=== PATIENT | male | born 1990 | race Caucasian/White ===

== ENCOUNTER 2017-01-19 13:37 | Inpatient (IN) | payer OTHER ==
[2017-01-19 14:49] VITALS: BMI 28.6
--- NOTE | 2017-01-19 16:01 | HP ---
COWS - Scale Resting Pulse: 2= [place] 101-120 Sweatin=Flushed/Facial Moisture Restless Observation: 3= Extraneous Movement Pupil Size: 1= Pupils >than Normal Bone or Joint Aches: 2= Severe Diffuse Aches Runny Nose/ Eye Tearin= Runny Nose/Eyes GI Upset > 30mins: 2= Nausea/Diarrhea Tremor Observation: 1= Tremor [place], Not Seen Yawning Observation: 1= 1-2x During Session Anxiety or Irritability: 2=Irritable/Anxious Goose Flesh Skin: 3=Piloerection COWS Score: 21 Admission ROS BHS - HPI Chief Complaint: I need help to stop using heroin . Allergies/Adverse Reactions: Allergies Allergy/AdvReac Type Severity Reaction Status Date / Time No Known Allergies Allergy Verified 01/19/17 15:17 History of Present Illness: 26 y/o m pt with a h/o heroin dep. seeking detox. Exam Limitations: No Limitations - Ebola screening Have you traveled outside of the country in the last 21 days: No Have you been sick,other than usual withdrawal symptoms: No Do you have a fever: No - Review of Systems Constitutional: Malaise, Night Sweats, Changes in sleep EENT: reports: Tearing, Nose Congestion Respiratory: reports: No Symptoms reported Cardiac: reports: No Symptoms Reported GI: reports: Diarrhea, Poor Appetite, Indigestion, Abdominal cramping : reports: No Symptoms Reported Musculoskeletal: reports: Back Pain, Joint Pain, Muscle Pain, Neck Pain, Other ( restless legs) Integumentary: reports: No Symptoms Reported Neuro: reports: No Symptoms reported Endocrine: reports: No Symptoms Reported Hematology: reports: No Symptoms Reported Psychiatric: reports: Anxious, Depressed Other Systems: Reviewed and Negative Patient History - Patient Medical History Hx Anemia: No Hx Asthma: Yes Hx Chronic Obstructive Pulmonary Disease (COPD): No Hx Cardiac Disorders: No Hx Hypertension: No Hx Pacemaker: No HX Cerebrovascular Accident: No Hx Seizures: No Hx Diabetes: No Hx Gastrointestinal Disorders: No Hx Liver Disease: No Hx Genitourinary Disorders: No Hx Sexually Transmitted Disorders: No Hx Renal Disease (ESRD): No Hx Hepatitis C: No Hx Depression: Yes Hx Suicide Attempt: No Hx Bipolar Disorder: No Hx Schizophrenia: No - Patient Surgical History Past Surgical History: No - PPD History Previous Implant?: Yes Documented Results: Negative w/o proof Implanted On Prior [facility] Admission?: No PPD to be Administered?: Yes - Reproductive History Patient is a Female of Child Bearing Age (11 -55 yrs old): No - Smoking Cessation Smoking history: Current every day smoker Have you smoked in the past 12 months: Yes Aproximately how many cigarettes per day: 10 Cigars Per Day: 0 Hx Chewing Tobacco Use: No Initiated information on smoking cessation: Yes 'Breaking Loose' booklet given: 01/19/17 - Substance & Tx. History Hx Alcohol Use: No Hx Substance Use: Yes Substance Use Type: Heroin Hx Substance Use Treatment: No - Substances Abused Heroin Route: Inhalation Frequency: Daily Amount used: 1 GRAM AND UP Age of first use: 25 Date of Last Use: 01/18/17 Family Disease History - Family Disease History Family History: Denies Admission Physical Exam S - Vital Signs Vital Signs: Vital Signs - 24 hr 01/19/17 14:47 Temperature 97.1 F L Pulse Rate 102 H Respiratory 18 Rate Blood Pressure 128/77 26 y/o m pt aox3 , restless, rhinnorrea, tearing , cooperative with exam. - Physical General Appearance: Yes: Appropriately Dressed, Tremorous, Irritable, Sweating, Anxious HEENTM: Yes: EOMI, Hearing grossly Normal, Normocephalic, Muffled/Hoarse Voice Respiratory: Yes: Chest Non-Tender, Lungs Clear, Normal Breath Sounds, No Respiratory Distress Neck: Yes: Within Normal Limits, Supple, Trachea in good position Breast: Yes: Within Normal Limits Cardiology: Yes: Regular Rhythm, S1, S2, Tachycardia Abdominal: Yes: Non Tender, Flat, Soft, Increased Bowel Sounds Genitourinary: Yes: Within Normal Limits Back: Yes: Decreased Range of Motion, Muscle Spasm Musculoskeletal: Yes: Back pain, Joint Stiffness, Muscle Pain Extremities: Yes: Tremors Neurological: Yes: translator and interpreter II-XII NML intact, Fully Oriented, Alert, Motor Strength 5/5, Normal Response Integumentary: Yes: Diaphoresis, Other (multiple tattos) Lymphatic: Yes: Within Normal Limits - Diagnostic (1) Opioid dependence with withdrawal Current Visit: Yes Status: Acute (2) Nicotine dependence Current Visit: Yes Status: Chronic Qualifiers: Nicotine product type: cigarettes Substance use status: uncomplicated Qualified Code(s): F17.210 - Nicotine dependence, cigarettes, uncomplicated (3) Depression Current Visit: Yes Status: Chronic Qualifiers: Depression Type: unspecified Qualified Code(s): F32.9 - Major depressive disorder, single episode, unspecified Cleared for Admission [facility] - Detox or Rehab [facility] Level of Care: Medically Managed Detox Regimen/Protocol: Methadone [facility] Breath Alcohol Content Breath Alcohol Content: 0 Urine Drug Screen - Results Drug Screen Negative: No Urine Drug Screen Results: OPI-Opiates, BZO-Benzodiazepines
[2017-01-19] MEDS ORDERED: MAG HYDROX/AL HYDROX/SIMETH 30 ML UNIT-DOSE CUP PO PRN (16:13)
[2017-01-19] MEDS ORDERED: guaiFENesin/D-METHORPHAN HB 10 ML UNIT-DOSE CUPS PO PRN (16:13)
[2017-01-19] MEDS ORDERED: IBUPROFEN 400 MG TABLET (FP) PO PRN (16:13)
[2017-01-19] MEDS ORDERED: MENTHOL/PHENOL 1 EACH UD MM PRN (16:13)
[2017-01-19] MEDS ORDERED: P-EPHED 60MG/TRIPROLIDI 2.5MG TABLET PO PRN (16:13)
[2017-01-19] MEDS ORDERED: LOPERAMIDE HCL 2 MG CAPSULE PO PRN (16:13)
[2017-01-19] MEDS ORDERED: MAGNESIUM HYDROX 2400MG/30ML ORAL SUSPENSION 30 ML CUP PO PRN (16:13)
[2017-01-19] MEDS ORDERED: hydrOXYzine PAMOATE 25 MG CAPSULE (FP) PO PRN (16:13)
[2017-01-19] MEDS ORDERED: MAGNESIUM CITRATE 300 ML BOTTLE PO PRN (16:13)
[2017-01-19] MEDS ORDERED: ACETAMINOPHEN 325 MG TABLET (FP) PO PRN (16:13)
[2017-01-19] MEDS ORDERED: METHADONE HCL 10 MG TABLET (FOR DETOX USE ONLY) PO ONE ×2 (16:45→23:00)
[2017-01-19] MEDS: diazePAM 5 MG TABLET PO PRN ×2 (16:52→22:20)
[2017-01-19] MEDS: NICOTINE POLACRILEX 4 MG GUM BC PRN (17:30)
[2017-01-19] MEDS: THIAMINE HCL 100 MG TABLET (FP) PO SCH (22:20)
[2017-01-19] MEDS ORDERED: ALBUTEROL SO4 6.7 GM HFA INHALER IH PRN (22:20)
[2017-01-19] MEDS: CYCLOBENZAPRINE HCL 10 MG TABLET (FP) PO PRN (22:20)
[2017-01-19] MEDS: diphenhydrAMINE HCL 50 MG CAPSULE PO PRN (22:20)
[2017-01-19 22:39] LABS: URINE APPEARANCE CLEAR; URINE BILIRUBIN NEGATIVE (NEGATIVE); URINE BLOOD NEGATIVE (NEGATIVE); URINE COLOR YELLOW; URINE GLUCOSE (UA) NEGATIVE (NEGATIVE); URINE KETONE NEGATIVE (NEGATIVE); URINE LEUK ESTERASE NEGATIVE (NEGATIVE); URINE NITRITE NEGATIVE (NEGATIVE); URINE PROTEIN NEGATIVE (NEGATIVE); URINE UROBILINOGEN NEGATIVE E.U./dl (0.2-1.0)
[2017-01-20] MEDS: diazePAM 5 MG TABLET PO PRN ×5 (02:41→22:16)
[2017-01-20] MEDS: diphenhydrAMINE HCL 50 MG CAPSULE PO PRN (02:42)
[2017-01-20] MEDS: CYCLOBENZAPRINE HCL 10 MG TABLET (FP) PO PRN ×2 (06:41→22:16)
[2017-01-20 09:35] LABS: MCH 26.2 pg (25.7-33.7); MCHC 32.8 g/dl (32.0-35.9); MEAN PLT VOLUME 7.8 fl (7.5-11.1); PLATELET COUNT 342 K/MM3 (134-434); RDW 13.9 % (11.9-15.9); WHITE BLOOD COUNT 8.3 K/mm3 (4.0-10.0)
[2017-01-20] MEDS ORDERED: METHADONE HCL 10 MG TABLET (FOR DETOX USE ONLY) PO ONE (10:00)
--- NOTE | 2017-01-20 10:30 | PN ---
BHS COWS - Scale Resting Pulse: 0= [place] 80 or Below Sweatin=Flushed/Facial Moisture Restless Observation: 3= Extraneous Movement Pupil Size: 2= Moderately Dilated Bone or Joint Aches: 2= Severe Diffuse Aches Runny Nose/ Eye Tearin= Runny Nose/Eyes GI Upset > 30mins: 2= Nausea/Diarrhea Tremor Observation of Outstretched Hands: 2= Slight Tremor Visible Yawning Observation: 1= 1-2x During Session Anxiety or Irritability: 2=Irritable/Anxious Goose Flesh Skin: 0=Smooth Skin COWS Score: 18 BHS Progress Note (SOAP) Subjective: ALERT,IRRITABLE,ANXIOUS,INTERRUPTED SLEEP,PAIN IN THE BODY AND BACK Objective: 01/20/17 10:29 Vital Signs Temperature 98.2 F 01/20/17 09:55 Pulse Rate 87 01/20/17 09:55 Respiratory Rate 18 01/20/17 09:55 Blood Pressure 133/81 01/20/17 09:55 O2 Sat by Pulse Oximetry (%) EKG NSR NO CHEST PAIN,NO SOB,NO DIZZINESS Laboratory Last Values WBC 8.3 K/mm3 (4.0-10.0) 01/20/17 07:47 RBC 6.05 M/mm3 (4.00-5.60) H 01/20/17 07:47 Hgb 15.9 GM/dL (11.7-16.9) 01/20/17 07:47 Hct 48.4 % (35.4-49) 01/20/17 07:47 MCV 80.0 fl (80-96) 01/20/17 07:47 MCHC 32.8 g/dl (32.0-35.9) 01/20/17 07:47 RDW 13.9 % (11.9-15.9) 01/20/17 07:47 Plt Count 342 K/MM3 (134-434) 01/20/17 07:47 MPV 7.8 fl (7.5-11.1) 01/20/17 07:47 Urine Color Yellow 01/19/17 19:35 Urine Appearance Clear 01/19/17 19:35 Urine pH 5.0 (5.0-8.0) 01/19/17 19:35 Ur Specific [place] 1.017 (1.001-1.035) 01/19/17 19:35 Urine Protein Negative (NEGATIVE) 01/19/17 19:35 Urine Glucose (UA) Negative (NEGATIVE) 01/19/17 19:35 Urine Ketones Negative (NEGATIVE) 01/19/17 19:35 Urine Blood Negative (NEGATIVE) 01/19/17 19:35 Urine Nitrite Negative (NEGATIVE) 01/19/17 19:35 Urine Bilirubin Negative (NEGATIVE) 01/19/17 19:35 Urine Urobilinogen Negative E.U./dl (0.2-1.0) 01/19/17 19:35 Ur Leukocyte Esterase Negative (NEGATIVE) 01/19/17 19:35 RPR Titer Nonreactive (NONREACTIVE) 01/20/17 07:47 OTHER LABS PENDING Assessment: 01/20/17 10:30 WITHDRAWAL SYMPTOM Plan: CONTINUE DETOX
[2017-01-20 10:38] LABS: ALBUMIN 4.6 g/dl (3.4-5.0); ANION GAP 13 (8-16); CALCIUM 9.9 mg/dL (8.5-10.1); CO2 23 mmol/L (21-32); GLUCOSE,RANDOM 110 mg/dL (74-106)
[2017-01-20 10:42] LABS: ALK PHOS 85 U/L (45-117); BILIRUBIN,TOTAL 0.7 mg/dL (0.2-1.0); CREATININE 1.2 mg/dL (0.7-1.3); SGOT/AST 13 U/L (15-37); SGPT/ALT 27 U/L (12-78); TOT PROT 8.1 g/dl (6.4-8.2)
--- NOTE | 2017-01-20 10:51 | CONSULT ---
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 Substance Abuse History: - Smoking Cessation. Smoking history: Current every day smoker. Have you smoked in the past 12 months: Yes. Aproximately how many cigarettes per day: 10. Cigars Per Day: 0. Hx Chewing Tobacco Use: No. Initiated information on smoking cessation: Yes. 'Breaking Loose' booklet given : 01/19/17. - Substance & Tx. History. Hx Alcohol Use: No. Hx Substance Use: Yes. Substance Use Type: Heroin. Hx Substance Use Treatment: No. - Substances Abused. Heroin. Route: Inhalation. Frequency: Daily. Amount used: 1 GRAM AND UP. Age of first use: 25. Date of Last Use: 01/18/17. Confirmed by the atient in this interview. Medical History: Bronchial asthma. Psychiatric History: No history of psychiatric hospitalizations.Patient reports that,two years ago,he sought the services of a private psychiatrist to address issues of depression and anxiety.Was prescribed bupropion,lyrica and xanax.Mr Master indicates that his addiction (heroin) escalated overtime.He dropped out of outpatient follow up.Has not seen his psychiatrist for at least one year.No history of suicide attempts. Physical/Sexual Abuse/Trauma History: Patient denies. Additional Comment: Urine Drug Screen Results: OPI-Opiates, BZO- Benzodiazepines.Noted. Mental Status Exam - Mental Status Exam Alert and Oriented to: Time, Place, Person Cognitive Function: Good Patient Appearance: Well Groomed Mood: Nervous, Anxious Affect: Normal Range Patient Behavior: Fatigued, Cooperative Speech Pattern: Clear, Appropriate Voice Loudness: Normal Thought Process: Intact, Goal Oriented Thought Disorder: Not Present Hallucinations: Denies Suicidal Ideation: Denies Homicidal Ideation: Denies Insight/Judgement: Fair Sleep: Poorly, Difficulty falling asleep Appetite: Good Muscle strength/Tone: Normal Gait/Station: Normal Psychiatric Findings - Problem List ([place] 1, 2,3) (1) Opioid dependence with withdrawal Current Visit: Yes Status: Acute (2) Nicotine dependence Current Visit: Yes Status: Acute Qualifiers: Nicotine product type: cigarettes Substance use status: uncomplicated Qualified Code(s): F17.210 - Nicotine dependence, cigarettes, uncomplicated (3) Insomnia Current Visit: Yes Status: Acute (4) Substance induced mood disorder Current Visit: Yes Status: Acute - Initial Treatment Plan Initial Treatment Plan: Psychoeducation.Detoxification.Ambien 10 mg po hs prn.Patient is made aware of the risk of parasomnias.He agrees with this plan of care.Observation.
[2017-01-20] MEDS: NICOTINE 21 MG/24 HOURS TOPICAL PATCH TD SCH (10:53)
[2017-01-20] MEDS: PRENATAL VITAMINS W/ FOLIC ACID TABLET (FP) PO SCH (10:54)
[2017-01-20] MEDS: NICOTINE POLACRILEX 4 MG GUM BC PRN (14:16)
--- NOTE | 2017-01-20 16:44 | EKG ---
Test Reason : Blood Pressure : / mmHG Vent. Rate : 081 BPM Atrial Rate : 081 BPM P-R Int : 148 ms QRS Dur : 104 ms QT Int : 374 ms P-R-T Axes : 050 051 036 degrees QTc Int : 434 ms NORMAL SINUS RHYTHM RSR' OR QR PATTERN IN V1 SUGGESTS RIGHT VENTRICULAR CONDUCTION DELAY BORDERLINE ECG NO PREVIOUS ECGS AVAILABLE Confirmed by MD ALEJANDRA, ROSEY ([id number]) on 01/20/2017 4:43:33 PM Referred By: Gee Santana Confirmed By:ROSEY ROBERTS MD
[2017-01-20] MEDS: THIAMINE HCL 100 MG TABLET (FP) PO SCH (22:16)
[2017-01-20] MEDS: cloNIDine HCL 0.1 MG TABLET PO SCH (22:16)
[2017-01-20] MEDS: ZOLPIDEM TARTRATE 10 MG TABLET (PARK CARE ONLY) PO PRN (22:16)
[2017-01-21] MEDS: diazePAM 5 MG TABLET PO PRN ×5 (02:48→22:57)
[2017-01-21] MEDS ORDERED: METHADONE HCL 5 MG TABLET (FOR DETOX USE ONLY) PO ONE (10:00)
[2017-01-21] MEDS: cloNIDine HCL 0.1 MG TABLET PO SCH ×2 (11:15→22:55)
[2017-01-21] MEDS: PRENATAL VITAMINS W/ FOLIC ACID TABLET (FP) PO SCH (11:15)
[2017-01-21] MEDS: NICOTINE 21 MG/24 HOURS TOPICAL PATCH TD SCH (11:16)
--- NOTE | 2017-01-21 12:19 | PN ---
S COWS - Scale Resting Pulse: 0= [place] 80 or Below Sweatin=Flushed/Facial Moisture Restless Observation: 3= Extraneous Movement Pupil Size: 1= Pupils >than Normal Bone or Joint Aches: 2= Severe Diffuse Aches Runny Nose/ Eye Tearin= Runny Nose/Eyes GI Upset > 30mins: 2= Nausea/Diarrhea Tremor Observation of Outstretched Hands: 2= Slight Tremor Visible Yawning Observation: 0= None Anxiety or Irritability: 2=Irritable/Anxious Goose Flesh Skin: 3=Piloerection COWS Score: 19 BHS Progress Note (SOAP) Subjective: sleeplessness, restlessness,sweats, irritability and generalized muscle aches Objective: 01/21/17 12:18 Vital Signs - 8 hr 01/21/17 01/21/17 06:00 10:00 Temperature 97.7 F 98.1 F Pulse Rate 68 92 H Respiratory 16 18 Rate Blood Pressure 140/90 121/75 Laboratory Last Values WBC 8.3 K/mm3 (4.0-10.0) 01/20/17 07:47 RBC 6.05 M/mm3 (4.00-5.60) H 01/20/17 07:47 Hgb 15.9 GM/dL (11.7-16.9) 01/20/17 07:47 Hct 48.4 % (35.4-49) 01/20/17 07:47 MCV 80.0 fl (80-96) 01/20/17 07:47 MCHC 32.8 g/dl (32.0-35.9) 01/20/17 07:47 RDW 13.9 % (11.9-15.9) 01/20/17 07:47 Plt Count 342 K/MM3 (134-434) 01/20/17 07:47 MPV 7.8 fl (7.5-11.1) 01/20/17 07:47 Sodium 143 mmol/L (136-145) 01/20/17 07:47 Potassium 4.0 mmol/L (3.5-5.1) 01/20/17 07:47 Chloride 107 mmol/L (98-107) 01/20/17 07:47 Carbon Dioxide 23 mmol/L (21-32) 01/20/17 07:47 Anion Gap 13 (8-16) 01/20/17 07:47 BUN 14 mg/dL (7-18) 01/20/17 07:47 Creatinine 1.2 mg/dL (0.7-1.3) 01/20/17 07:47 Creat Clearance w eGFR > 60 (>60) 01/20/17 07:47 Random Glucose 110 mg/dL (74-106) H 01/20/17 07:47 Calcium 9.9 mg/dL (8.5-10.1) 01/20/17 07:47 Total Bilirubin 0.7 mg/dL (0.2-1.0) 01/20/17 07:47 AST 13 U/L (15-37) L 01/20/17 07:47 ALT 27 U/L (12-78) 01/20/17 07:47 Alkaline Phosphatase 85 U/L (45-117) 01/20/17 07:47 Total Protein 8.1 g/dl (6.4-8.2) 01/20/17 07:47 Albumin 4.6 g/dl (3.4-5.0) 01/20/17 07:47 Urine Color Yellow 01/19/17 19:35 Urine Appearance Clear 01/19/17 19:35 Urine pH 5.0 (5.0-8.0) 01/19/17 19:35 Ur Specific [place] 1.017 (1.001-1.035) 01/19/17 19:35 Urine Protein Negative (NEGATIVE) 01/19/17 19:35 Urine Glucose (UA) Negative (NEGATIVE) 01/19/17 19:35 Urine Ketones Negative (NEGATIVE) 01/19/17 19:35 Urine Blood Negative (NEGATIVE) 01/19/17 19:35 Urine Nitrite Negative (NEGATIVE) 01/19/17 19:35 Urine Bilirubin Negative (NEGATIVE) 01/19/17 19:35 Urine Urobilinogen Negative E.U./dl (0.2-1.0) 01/19/17 19:35 Ur Leukocyte Esterase Negative (NEGATIVE) 01/19/17 19:35 RPR Titer Nonreactive (NONREACTIVE) 01/20/17 07:47 Hepatitis C Antibody 0.1 s/co ratio (0.0-0.9) 01/20/17 07:47 Labs noted Assessment: 02/25/17 12:18 withdrawal sx Plan: continue detox
[2017-01-21] MEDS: THIAMINE HCL 100 MG TABLET (FP) PO SCH (22:53)
[2017-01-21] MEDS: diphenhydrAMINE HCL 50 MG CAPSULE PO PRN (22:53)
[2017-01-21] MEDS: ZOLPIDEM TARTRATE 10 MG TABLET (PARK CARE ONLY) PO PRN (22:55)
[2017-01-21] MEDS: QUEtiapine FUMARATE 50 MG TABLET PO SCH (22:55)
[2017-01-22] MEDS: diazePAM 5 MG TABLET PO PRN ×3 (06:04→15:12)
[2017-01-22] MEDS ORDERED: METHADONE HCL 5 MG TABLET (FOR DETOX USE ONLY) PO ONE (10:00)
[2017-01-22] MEDS: cloNIDine HCL 0.1 MG TABLET PO SCH ×2 (10:50→22:47)
[2017-01-22] MEDS: PRENATAL VITAMINS W/ FOLIC ACID TABLET (FP) PO SCH (10:50)
[2017-01-22] MEDS: NICOTINE 21 MG/24 HOURS TOPICAL PATCH TD SCH (10:51)
[2017-01-22] MEDS: NICOTINE POLACRILEX 4 MG GUM BC PRN ×2 (10:55→15:14)
--- NOTE | 2017-01-22 11:43 | PN ---
S Progress Note (SOAP) Subjective: Restlessness, Interrupted Sleep, Tremors, Mild Headache, Objective: 01/22/17 11:42 Vital Signs Temperature 95.9 F L 01/22/17 10:00 Pulse Rate 91 H 01/22/17 10:00 Respiratory Rate 20 01/22/17 10:00 Blood Pressure 133/77 01/22/17 10:00 O2 Sat by Pulse Oximetry (%) Laboratory Last Values WBC 8.3 K/mm3 (4.0-10.0) 01/20/17 07:47 RBC 6.05 M/mm3 (4.00-5.60) H 01/20/17 07:47 Hgb 15.9 GM/dL (11.7-16.9) 01/20/17 07:47 Hct 48.4 % (35.4-49) 01/20/17 07:47 MCV 80.0 fl (80-96) 01/20/17 07:47 MCHC 32.8 g/dl (32.0-35.9) 01/20/17 07:47 RDW 13.9 % (11.9-15.9) 01/20/17 07:47 Plt Count 342 K/MM3 (134-434) 01/20/17 07:47 MPV 7.8 fl (7.5-11.1) 01/20/17 07:47 Sodium 143 mmol/L (136-145) 01/20/17 07:47 Potassium 4.0 mmol/L (3.5-5.1) 01/20/17 07:47 Chloride 107 mmol/L (98-107) 01/20/17 07:47 Carbon Dioxide 23 mmol/L (21-32) 01/20/17 07:47 Anion Gap 13 (8-16) 01/20/17 07:47 BUN 14 mg/dL (7-18) 01/20/17 07:47 Creatinine 1.2 mg/dL (0.7-1.3) 01/20/17 07:47 Creat Clearance w eGFR > 60 (>60) 01/20/17 07:47 Random Glucose 110 mg/dL (74-106) H 01/20/17 07:47 Calcium 9.9 mg/dL (8.5-10.1) 01/20/17 07:47 Total Bilirubin 0.7 mg/dL (0.2-1.0) 01/20/17 07:47 AST 13 U/L (15-37) L 01/20/17 07:47 ALT 27 U/L (12-78) 01/20/17 07:47 Alkaline Phosphatase 85 U/L (45-117) 01/20/17 07:47 Total Protein 8.1 g/dl (6.4-8.2) 01/20/17 07:47 Albumin 4.6 g/dl (3.4-5.0) 01/20/17 07:47 Urine Color Yellow 01/19/17 19:35 Urine Appearance Clear 01/19/17 19:35 Urine pH 5.0 (5.0-8.0) 01/19/17 19:35 Ur Specific [place] 1.017 (1.001-1.035) 01/19/17 19:35 Urine Protein Negative (NEGATIVE) 01/19/17 19:35 Urine Glucose (UA) Negative (NEGATIVE) 01/19/17 19:35 Urine Ketones Negative (NEGATIVE) 01/19/17 19:35 Urine Blood Negative (NEGATIVE) 01/19/17 19:35 Urine Nitrite Negative (NEGATIVE) 01/19/17 19:35 Urine Bilirubin Negative (NEGATIVE) 01/19/17 19:35 Urine Urobilinogen Negative E.U./dl (0.2-1.0) 01/19/17 19:35 Ur Leukocyte Esterase Negative (NEGATIVE) 01/19/17 19:35 RPR Titer Nonreactive (NONREACTIVE) 01/20/17 07:47 Hepatitis C Antibody 0.1 s/co ratio (0.0-0.9) 01/20/17 07:47 Labs Noted Assessment: Withdrawal Symptoms Plan: Continue Detox
[2017-01-22] MEDS: THIAMINE HCL 100 MG TABLET (FP) PO SCH (22:46)
[2017-01-22] MEDS: ZOLPIDEM TARTRATE 10 MG TABLET (PARK CARE ONLY) PO PRN (22:47)
[2017-01-22] MEDS: QUEtiapine FUMARATE 50 MG TABLET PO SCH (22:49)
[2017-01-23] MEDS ORDERED: METHADONE HCL 10 MG TABLET (FOR DETOX USE ONLY) PO ONE (10:00)
[2017-01-23 10:19] VITALS: BP 119/60; PULSE 93; TEMP 97.7
[2017-01-23] MEDS: NICOTINE 21 MG/24 HOURS TOPICAL PATCH TD SCH (10:30)
[2017-01-23] MEDS: PRENATAL VITAMINS W/ FOLIC ACID TABLET (FP) PO SCH (10:30)
[2017-01-23] MEDS: CYCLOBENZAPRINE HCL 10 MG TABLET (FP) PO PRN (10:32)
[2017-01-23] MEDS: cloNIDine HCL 0.1 MG TABLET PO SCH (10:32)
[2017-01-23] MEDS: NICOTINE POLACRILEX 4 MG GUM BC PRN (10:33)
--- NOTE | 2017-01-23 10:58 | DS ---
[facility] Detox Discharge Summary Admission Date: 01/19/17 Discharge Date: 01/23/17 - History Present History: Opioid Dependence - Physical Exam Results Vital Signs: Vital Signs Temperature 97.7 F 01/23/17 10:18 Pulse Rate 93 H 01/23/17 10:18 Respiratory Rate 18 01/23/17 10:18 Blood Pressure 119/60 01/23/17 10:18 O2 Sat by Pulse Oximetry (%) - Treatment Hospital Course: Detox Protocol Followed, Detoxed Safely, Responded well, Discharged Condition Good - Medication Discharge Medications: Ambulatory Orders Albuterol Sulfate Inhaler - [Ventolin Hfa Inhaler -] 2 inh PO Q4H PRN 01/19/17 - Diagnosis (1) Opioid dependence with withdrawal Current Visit: Yes Status: Chronic (2) Nicotine dependence Current Visit: Yes Status: Chronic Qualifiers: Nicotine product type: cigarettes Substance use status: uncomplicated Qualified Code(s): F17.210 - Nicotine dependence, cigarettes, uncomplicated (3) Depression Current Visit: Yes Status: Chronic Qualifiers: Depression Type: unspecified Qualified Code(s): F32.9 - Major depressive disorder, single episode, unspecified - AMA Did Patient Leave Against Medical Advice: No (pt erik early d/c.)
[2017-01-24] MEDS ORDERED: METHADONE HCL 5 MG TABLET (FOR DETOX USE ONLY) PO ONE (06:00)
== END 2017-01-23 11:29 | disposition home or self-care (01) | DRG 897 ==
LOC: YASAS 13:37 → Y6N 15:38
PROVIDERS: ADMIT Internal Medicine Addiction Medicine; ATTEND Internal Medicine Addiction Medicine
PROC: HZ2ZZZZ Detoxification Services for Substance Abuse Treatment (ICD-10-PCS; principal; 2017-01-23)
DX: F11.23 Opioid dependence with withdrawal (principal); F17.210 Nicotine dependence, cigarettes, uncomplicated; F32.9 Major depressive disorder, single episode, unspecified; F19.24 Other psychoactive substance dependence with psychoactive substance-induced mood disorder; G47.00 Insomnia, unspecified
CPT/HCPCS: 36415; 80053; 81003; 85027; 86593; 93005; 93010

== ENCOUNTER 2018-08-15 19:10 | Inpatient (IN) | payer OTHER ==
[2018-08-15] MEDS ORDERED: ALBUTEROL SO4 2.5/IPRATROPIUM 0.5 INH SOL 3 ML VIAL.NEB. NEB PRN (19:35)
[2018-08-15 19:37] VITALS: BMI 30.3
--- NOTE | 2018-08-15 19:55 | HP ---
COWS - Scale Resting Pulse: 1= [place] 81-100 Sweatin= Beads of Sweat on Face Restless Observation: 1= Difficult to Sit Still Pupil Size: 1= Pupils >than Normal Bone or Joint Aches: 2= Severe Diffuse Aches Runny Nose/ Eye Tearin= Runny Nose/Eyes GI Upset > 30mins: 3= Vomiting/Diarrhea Tremor Observation: 2= Slight Tremor Visible Yawning Observation: 1= 1-2x During Session Anxiety or Irritability: 4=Extreme Anxiety Goose Flesh Skin: 0=Smooth Skin COWS Score: 20 Admission ROS S - HPI Chief Complaint: opiod withdrawal symptoms Allergies/Adverse Reactions: Allergies Allergy/AdvReac Type Severity Reaction Status Date / Time No Known Allergies Allergy Verified 08/15/18 20:06 History of Present Illness: Patient is a 28 yo male with hx of nicotine , heroin (Iv) dependence is here seeking detox and opioid withdrawal symptoms. Last detox [facility] December 2016.Last heroin uses last night, reports uses on average about 20 bags per day. Reports not feeling, reports taking 16 mg this morning of suboxone "off the streets" to teat his withdrawal and reports feeling worse after taking the medication.In addition, reports worsening asthma symptoms in the last 24 hours. PMHX: asthma, depression. Denies suicidal / homicidal ideation. Denies hx of seizure , blackouts or overdose. Longest period of sobriety six months Exam Limitations: No Limitations - Ebola screening Have you traveled outside of the country in the last 21 days: No (N) Have you had contact with anyone from an Ebola affected area: No Have you been sick,other than usual withdrawal symptoms: No Do you have a fever: No - Review of Systems Constitutional: Diaphoresis, Changes in sleep EENT: reports: Other (runny nose) Respiratory: reports: Wheezing, Productive cough Cardiac: reports: Lightheadedness GI: reports: Diarrhea, Poor Fluid Intake, Vomiting, Abdominal cramping : reports: No Symptoms Reported Musculoskeletal: reports: Back Pain, Joint Pain Integumentary: reports: No Symptoms Reported Neuro: reports: Weakness, Dizziness Endocrine: reports: Excessive Sweating, Flushing, Increased Thirst Hematology: reports: No Symptoms Reported Psychiatric: reports: Orientated x3, Anxious Other Systems: Reviewed and Negative Patient History - Patient Medical History Hx Anemia: No Hx Asthma: Yes Hx Chronic Obstructive Pulmonary Disease (COPD): No Hx Cardiac Disorders: No Hx Hypertension: No Hx Pacemaker: No HX Cerebrovascular Accident: No Hx Seizures: No Hx Diabetes: No Hx Gastrointestinal Disorders: No Hx Liver Disease: No Hx Genitourinary Disorders: No Hx Sexually Transmitted Disorders: No Hx Renal Disease (ESRD): No Hx Hepatitis C: No Hx Depression: Yes Hx Suicide Attempt: No Hx Bipolar Disorder: No Hx Schizophrenia: No - Patient Surgical History Past Surgical History: No - PPD History Previous Implant?: No Documented Results: Negative w/proof Implanted On Prior [facility] Admission?: No Date: 01/21/17 PPD to be Administered?: Yes - Smoking Cessation Smoking history: Current every day smoker Have you smoked in the past 12 months: Yes Aproximately how many cigarettes per day: 10 Cigars Per Day: 0 Hx Chewing Tobacco Use: No Initiated information on smoking cessation: Yes 'Breaking Loose' booklet given: 08/15/18 - Substances Abused heroin Route: Injection Frequency: Daily Amount used: 20 bags Age of first use: 26 Date of Last Use: 08/14/18 Family Disease History - Family Disease History Family History: Denies Admission Physical Exam S - Vital Signs Vital Signs: Vital Signs - 24 hr 08/15/18 19:34 Temperature 97.9 F Pulse Rate 97 H Respiratory 18 Rate Blood Pressure 160/104 - Physical General Appearance: Yes: Disheveled, Severe Distress, Obese, Sweating, Anxious HEENTM: Yes: EOMI, Hearing grossly Normal, Normal ENT Inspection, Normocephalic , Normal Voice, [place], Pharynx Normal, Tm's normal, Rhinorrhea Respiratory: Yes: Chest Non-Tender, No Respiratory Distress, No Accessory Muscle Use, Wheezing Neck: Yes: Within Normal Limits Breast: Yes: Breast Exam Deferred Cardiology: Yes: Regular Rhythm, Tachycardia Abdominal: Yes: Normal Bowel Sounds, Non Tender, Soft, Protuberent Genitourinary: Yes: Within Normal Limits Back: Yes: Normal Inspection Musculoskeletal: Yes: full range of Motion, Gait Steady, Pelvis Stable, Back pain Extremities: Yes: Normal Capillary Refill, Normal Inspection, Normal Range of Motion, Non-Tender 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, Fully Oriented, Alert, Motor Strength 5/5, Depressed Affect Integumentary: Yes: Normal Color, Warm, Diaphoresis Lymphatic: Yes: Within Normal Limits - Diagnostic (1) Asthma Current Visit: Yes Status: Acute (2) Obese Current Visit: Yes Status: Chronic Qualifiers: Obesity type: unspecified obesity type Obesity classification: adult class 1 (BMI 30 - 34.9) Serious obesity comorbidity presence: unspecified whether serious comorbidity present Body mass index: BMI 30.0-30.9 Qualified Code(s) : E66.9 - Obesity, unspecified; Z68.30 - Body mass index (BMI) 30.0-30.9, adult (3) Depression Current Visit: Yes Status: Chronic Qualifiers: Depression Type: unspecified Qualified Code(s): F32.9 - Major depressive disorder, single episode, unspecified (4) Nicotine dependence Current Visit: Yes Status: Chronic Qualifiers: Nicotine product type: cigarettes Substance use status: uncomplicated Qualified Code(s): F17.210 - Nicotine dependence, cigarettes, uncomplicated (5) Opioid dependence with withdrawal Current Visit: Yes Status: Acute Cleared for Admission S - Detox or Rehab [facility] Level of Care: Medically Managed Detox Regimen/Protocol: Methadone [facility] Breath Alcohol Content Breath Alcohol Content: 0 Urine Drug Screen - Results Drug Screen Negative: No Urine Drug Screen Results: OPI-Opiates, FEN-Fentanyl, BUP-Suboxone
[2018-08-15] MEDS ORDERED: MENTHOL/PHENOL 1 EACH UD MM PRN (20:01)
[2018-08-15] MEDS ORDERED: MAGNESIUM HYDROX 2400MG/30ML ORAL SUSPENSION 30 ML CUP PO PRN (20:01)
[2018-08-15] MEDS ORDERED: MAG HYDROX/AL HYDROX/SIMETH 30 ML UNIT-DOSE CUP PO PRN (20:01)
[2018-08-15] MEDS ORDERED: LOPERAMIDE HCL 2 MG CAPSULE PO PRN (20:01)
[2018-08-15] MEDS ORDERED: P-EPHED 60MG/TRIPROLIDI 2.5MG TABLET PO PRN (20:01)
[2018-08-15] MEDS ORDERED: guaiFENesin/D-METHORPHAN HB 10 ML UNIT-DOSE CUPS PO PRN (20:01)
[2018-08-15] MEDS ORDERED: IBUPROFEN 400 MG TABLET (FP) PO PRN (20:01)
[2018-08-15] MEDS ORDERED: MAGNESIUM CITRATE 300 ML BOTTLE PO PRN (20:01)
[2018-08-15] MEDS ORDERED: METHADONE HCL 10 MG TABLET (FOR DETOX USE ONLY) PO ONE ×2 (20:01→23:00)
[2018-08-15] MEDS ORDERED: cloNIDine HCL 0.1 MG TABLET PO ONE (20:03)
[2018-08-15] MEDS ORDERED: predniSONE 20 MG TABLET (UD) PO ONE (20:16)
[2018-08-15] MEDS: diazePAM 5 MG TABLET PO PRN (20:47)
[2018-08-15] MEDS: MONTELUKAST NA 10 MG TABLET PO SCH (22:42)
[2018-08-15] MEDS: THIAMINE HCL 100 MG TABLET (FP) PO SCH (22:43)
[2018-08-15] MEDS: MELATONIN 5 MG TABLETS PO PRN (22:43)
[2018-08-15 23:24] LABS: URINE APPEARANCE CLOUDY; URINE BILIRUBIN NEGATIVE (<2.0 mg/dL); URINE COLOR YELLOW; URINE GLUCOSE (UA) NEGATIVE (NEGATIVE); URINE KETONE NEGATIVE (NEGATIVE); URINE LEUK ESTERASE NEGATIVE (NEGATIVE); URINE NITRITE NEGATIVE (NEGATIVE); URINE PROTEIN NEGATIVE (NEGATIVE); URINE UROBILINOGEN NEGATIVE mg/dL (0.2-1.0)
[2018-08-16] MEDS: diazePAM 5 MG TABLET PO PRN ×5 (00:57→22:56)
[2018-08-16] MEDS: ACETAMINOPHEN 325 MG TABLET (FP) PO PRN ×2 (05:13→22:57)
[2018-08-16] MEDS ORDERED: METHADONE HCL 10 MG TABLET (FOR DETOX USE ONLY) PO ONE (10:00)
[2018-08-16] MEDS ORDERED: predniSONE 10 MG TABLET (UD) PO ONE (10:00)
--- NOTE | 2018-08-16 10:00 | EKG ---
Test Reason : Blood Pressure : / mmHG Vent. Rate : 081 BPM Atrial Rate : 081 BPM P-R Int : 146 ms QRS Dur : 086 ms QT Int : 366 ms P-R-T Axes : 058 061 048 degrees QTc Int : 425 ms POOR DATA QUALITY, INTERPRETATION MAY BE ADVERSELY AFFECTED NORMAL SINUS RHYTHM NORMAL ECG WHEN COMPARED WITH ECG OF 19-JAN-2017 16:59, RSR' PATTERN IN V1 IS NO LONGER PRESENT Confirmed by BECK BURR MD ([id number]) on 08/16/2018 9:59:43 AM Referred By: Confirmed By:BECK BURR MD
[2018-08-16 10:27] LABS: HEMATOCRIT 42.2 % (35.4-49); HEMOGLOBIN 13.9 GM/dL (11.7-16.9); MCH 25.9 pg (25.7-33.7); MEAN CELL VOLUME 78.6 fl (80-96); MEAN PLT VOLUME 7.1 fl (7.5-11.1); PLATELET COUNT 265 K/MM3 (134-434); RBC 5.38 M/mm3 (4.00-5.60); RDW 13.4 % (11.9-15.9); WHITE BLOOD COUNT 6.8 K/mm3 (4.0-10.0)
[2018-08-16] MEDS: NICOTINE 14 MG/24 HOURS TOPICAL PATCH TD SCH (10:31)
[2018-08-16] MEDS: PRENATAL VITAMINS W/ FOLIC ACID TABLET (FP) PO SCH (10:31)
--- NOTE | 2018-08-16 11:38 | PN ---
BHS COWS - Scale Resting Pulse: 1= [place] 81-100 Sweatin= Chills/Flushing Restless Observation: 3= Extraneous Movement Pupil Size: 0= Normal to Room Light Bone or Joint Aches: 1= Mild Discomfort Runny Nose/ Eye Tearin= None GI Upset > 30mins: 0= None Tremor Observation of Outstretched Hands: 1= Tremor [place], Not Seen Yawning Observation: 2= >3x During Session Anxiety or Irritability: 2=Irritable/Anxious Goose Flesh Skin: 0=Smooth Skin COWS Score: 11 BHS Progress Note (SOAP) Subjective: ANXIETY,SWEATS,YAWNING,FATIGUE,INTERMITTENT SLEEP. Objective: 08/16/18 11:37 Vital Signs 08/16/18 08/16/18 06:18 10:31 Temperature 97.7 F 98.0 F Pulse Rate 77 88 Respiratory 18 18 Rate Blood Pressure 130/82 130/86 Laboratory Tests 08/15/18 08/16/18 08/16/18 23:10 07:00 07:00 WBC 6.8 RBC 5.38 Hgb 13.9 Hct 42.2 MCV 78.6 L MCH 25.9 MCHC 33.0 RDW 13.4 Plt Count 265 D MPV 7.1 L Urine Color Yellow Urine Appearance Cloudy Urine pH 9.0 H D Ur Specific [place] 1.014 Urine Protein Negative Urine Glucose (UA) Negative Urine Ketones Negative Urine Blood Negative Urine Nitrite Negative Urine Bilirubin Negative Urine Urobilinogen Negative Ur Leukocyte Esterase Negative RPR Titer Nonreactive Assessment: 08/16/18 11:37 WITHDRAWAL SX Plan: CONTINUE DETOX INCREASE PO FLUIDS
--- NOTE | 2018-08-16 11:49 | CONSULT ---
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 This is one of multiple admissions for patient. Pt. admitted to for opiate dependence. Substance Abuse History: - Smoking Cessation. Smoking history: Current every day smoker. Have you smoked in the past 12 months: Yes. Aproximately how many cigarettes per day: 10. Cigars Per Day: 0. Hx Chewing Tobacco Use: No. Initiated information on smoking cessation: Yes. 'Breaking Loose' booklet given : 08/15/18. - Substances Abused. heroin. Route: Injection. Frequency: Daily. Amount used: 20 bags. Age of first use: 26. Date of Last Use: 08/14/18 Medical History: Asthma Psychiatric History: Patient's first psychiatric contact was approximately 5 years ago at a outpatient clinic in [place]. He was started on wellbutrin 150mg XL + gabapentin 300mg TID. Patient reports sub-optimal adherence to outpatient psychiatric treatment for the following several years. In December of 2017 patient was admitted to an inpatient rehab in [place] called [facility]. He was in the rehab program until the end of february and reports taking Wellbutrin 300mg XL + Gabapentin 300 TID + Seroquel 200mg qhs. After discharge patient continued treatment for 1-2 months at an outpatient clinic in [place]. Currently, patient does not have an OPD. Mr. Thao receives his refills from emergency rooms or when admitted to hospitals for medical concerns (asthma ). As per pharmacy claims a prescription of Wellbutrin 300mg XL + Gabapentin 300mg TID was electronically sent to patient's pharmacy on 07/24/18. Seroquel 200mg was electronically sent on 07/02/18. Patient denies h/o suicide attempt. Physical/Sexual Abuse/Trauma History: denies. Mental Status Exam - Mental Status Exam Alert and Oriented to: Time, Place, Person Cognitive Function: Good Patient Appearance: Well Groomed Mood: Hopeful Affect: Appropriate, Mood Congruent Patient Behavior: Appropriate, Cooperative Speech Pattern: Clear, Appropriate Voice Loudness: Normal Thought Process: Intact, Goal Oriented Thought Disorder: Not Present Hallucinations: Denies Suicidal Ideation: Denies Homicidal Ideation: Denies Insight/Judgement: Poor Sleep: Poorly Appetite: Fair Muscle strength/Tone: Normal Gait/Station: Normal Psychiatric Findings - Problem List (Gregory 1, 2,3) (1) Substance-induced sleep disorder Current Visit: Yes Status: Acute (2) Nicotine dependence Current Visit: Yes Status: Chronic Qualifiers: Nicotine product type: cigarettes Substance use status: in withdrawal Qualified Code(s): F17.213 - Nicotine dependence, cigarettes, with withdrawal (3) Opioid dependence with withdrawal Current Visit: Yes Status: Acute (4) Mood disorder Current Visit: Yes Status: Suspected (5) Substance induced mood disorder Current Visit: Yes Status: Acute - Initial Treatment Plan Initial Treatment Plan: Psychoeducation provided. Detoxification in progress. Wellbutrin 300mg Xl + Gabapentin 300mg TID + Seroquel 200mg qhs ordered. Benefits and side effects discussed. Verbal consent given.
[2018-08-16 12:14] LABS: ALBUMIN 3.9 g/dl (3.4-5.0); ALK PHOS 79 U/L (45-117); ANION GAP 7 MMOL/L (8-16); BILIRUBIN,TOTAL 0.8 mg/dL (0.2-1); BLOOD UREA NITROGEN 9 mg/dL (7-18); CALCIUM 9.3 mg/dL (8.5-10.1); CHLORIDE 104 mmol/L (98-107); CO2 25 mmol/L (21-32); CREATININE 0.7 mg/dL (0.55-1.3); GLUCOSE,RANDOM 106 mg/dL (74-106); POTASSIUM 4.1 mmol/L (3.5-5.1); SGOT/AST 17 U/L (15-37); SGPT/ALT 33 U/L (13-61); SODIUM 136 mmol/L (136-145); TOT PROT 7.8 g/dl (6.4-8.2)
[2018-08-16] MEDS: GABAPENTIN 300 MG CAPSULE (FP) PO SCH ×2 (13:27→22:53)
[2018-08-16] MEDS: NICOTINE POLACRILEX 2 MG GUM BUC PRN (15:20)
[2018-08-16] MEDS: ALBUTEROL SO4 8 GM HFA INHALER IH PRN (18:44)
[2018-08-16] MEDS: MONTELUKAST NA 10 MG TABLET PO SCH (22:53)
[2018-08-16] MEDS: MELATONIN 5 MG TABLETS PO PRN (22:53)
[2018-08-16] MEDS: THIAMINE HCL 100 MG TABLET (FP) PO SCH (22:53)
[2018-08-16] MEDS: QUEtiapine FUMARATE 200 MG TABLET PO SCH (22:53)
[2018-08-17] MEDS: GABAPENTIN 300 MG CAPSULE (FP) PO SCH ×3 (05:54→22:29)
[2018-08-17] MEDS: diazePAM 5 MG TABLET PO PRN ×4 (05:55→22:29)
[2018-08-17] MEDS ORDERED: buPROPion HCL 100 MG TABLET PO SCH (10:00)
[2018-08-17] MEDS ORDERED: METHADONE HCL 5 MG TABLET (FOR DETOX USE ONLY) PO ONE (10:00)
[2018-08-17] MEDS ORDERED: predniSONE 20 MG TABLET (UD) PO ONE (10:00)
[2018-08-17] MEDS: PRENATAL VITAMINS W/ FOLIC ACID TABLET (FP) PO SCH (10:29)
[2018-08-17] MEDS: NICOTINE 14 MG/24 HOURS TOPICAL PATCH TD SCH (10:29)
[2018-08-17] MEDS: ALBUTEROL SO4 8 GM HFA INHALER IH PRN (10:31)
--- NOTE | 2018-08-17 14:47 | PN ---
[facility] COWS - Scale Resting Pulse: 1= [place] 81-100 Sweatin= Chills/Flushing Restless Observation: 3= Extraneous Movement Pupil Size: 2= Moderately Dilated Bone or Joint Aches: 1= Mild Discomfort Runny Nose/ Eye Tearin= None GI Upset > 30mins: 0= None Tremor Observation of Outstretched Hands: 1= Tremor [place], Not Seen Yawning Observation: 1= 1-2x During Session Anxiety or Irritability: 2=Irritable/Anxious Goose Flesh Skin: 0=Smooth Skin COWS Score: 12 [facility] Progress Note (SOAP) Subjective: ANXIETY, COLD SWEATS, INTERMITTENT SLEEP. Objective: 08/17/18 14:46 Vital Signs 08/17/18 08/17/18 10:33 14:24 Temperature 97.7 F 97.9 F Pulse Rate 90 56 L Respiratory 18 20 Rate Blood Pressure 123/82 114/87 Laboratory Tests 08/15/18 08/16/18 08/16/18 23:10 07:00 07:00 WBC 6.8 RBC 5.38 Hgb 13.9 Hct 42.2 MCV 78.6 L MCH 25.9 MCHC 33.0 RDW 13.4 Plt Count 265 D MPV 7.1 L Sodium 136 Potassium 4.1 Chloride 104 Carbon Dioxide 25 Anion Gap 7 L BUN 9 Creatinine 0.7 Creat Clearance w eGFR > 60 Random Glucose 106 Calcium 9.3 Total Bilirubin 0.8 AST 17 ALT 33 Alkaline Phosphatase 79 Total Protein 7.8 Albumin 3.9 Urine Color Yellow Urine Appearance Cloudy Urine pH 9.0 H D Ur Specific [place] 1.014 Urine Protein Negative Urine Glucose (UA) Negative Urine Ketones Negative Urine Blood Negative Urine Nitrite Negative Urine Bilirubin Negative Urine Urobilinogen Negative Ur Leukocyte Esterase Negative RPR Titer 08/16/18 07:00 WBC RBC Hgb Hct MCV MCH MCHC RDW Plt Count MPV Sodium Potassium Chloride Carbon Dioxide Anion Gap BUN Creatinine Creat Clearance w eGFR Random Glucose Calcium Total Bilirubin AST ALT Alkaline Phosphatase Total Protein Albumin Urine Color Urine Appearance Urine pH Ur Specific [place] Urine Protein Urine Glucose (UA) Urine Ketones Urine Blood Urine Nitrite Urine Bilirubin Urine Urobilinogen Ur Leukocyte Esterase RPR Titer Nonreactive Assessment: 08/17/18 14:46 WITHDRAWAL SX Plan: CONTINUE DETOX
[2018-08-17] MEDS: THIAMINE HCL 100 MG TABLET (FP) PO SCH (22:28)
[2018-08-17] MEDS: MONTELUKAST NA 10 MG TABLET PO SCH (22:29)
[2018-08-17] MEDS: QUEtiapine FUMARATE 200 MG TABLET PO SCH (22:29)
[2018-08-17] MEDS: MELATONIN 5 MG TABLETS PO PRN (22:29)
[2018-08-18] MEDS: GABAPENTIN 300 MG CAPSULE (FP) PO SCH ×3 (06:01→22:17)
[2018-08-18] MEDS: diazePAM 5 MG TABLET PO PRN ×2 (06:03→10:35)
[2018-08-18] MEDS ORDERED: METHADONE HCL 5 MG TABLET (FOR DETOX USE ONLY) PO ONE (10:00)
[2018-08-18] MEDS ORDERED: predniSONE 10 MG TABLET (UD) PO ONE (10:00)
[2018-08-18] MEDS: NICOTINE 14 MG/24 HOURS TOPICAL PATCH TD SCH (10:35)
[2018-08-18] MEDS: PRENATAL VITAMINS W/ FOLIC ACID TABLET (FP) PO SCH (10:35)
--- NOTE | 2018-08-18 11:52 | PN ---
[facility] Progress Note (SOAP) Subjective: C/O ANXIETY, SWEATS, BLISTERS AROUND OUTER UPPER LIP. Objective: 08/18/18 11:52 Vital Signs Temperature 96.4 F L 08/18/18 09:19 Pulse Rate 99 H 08/18/18 09:19 Respiratory Rate 18 08/18/18 09:19 Blood Pressure 125/81 08/18/18 09:19 O2 Sat by Pulse Oximetry (%) Laboratory Tests 08/15/18 08/16/18 08/16/18 23:10 07:00 07:00 WBC 6.8 RBC 5.38 Hgb 13.9 Hct 42.2 MCV 78.6 L MCH 25.9 MCHC 33.0 RDW 13.4 Plt Count 265 D MPV 7.1 L Sodium 136 Potassium 4.1 Chloride 104 Carbon Dioxide 25 Anion Gap 7 L BUN 9 Creatinine 0.7 Creat Clearance w eGFR > 60 Random Glucose 106 Calcium 9.3 Total Bilirubin 0.8 AST 17 ALT 33 Alkaline Phosphatase 79 Total Protein 7.8 Albumin 3.9 Urine Color Yellow Urine Appearance Cloudy Urine pH 9.0 H D Ur Specific [place] 1.014 Urine Protein Negative Urine Glucose (UA) Negative Urine Ketones Negative Urine Blood Negative Urine Nitrite Negative Urine Bilirubin Negative Urine Urobilinogen Negative Ur Leukocyte Esterase Negative RPR Titer 08/16/18 07:00 WBC RBC Hgb Hct MCV MCH MCHC RDW Plt Count MPV Sodium Potassium Chloride Carbon Dioxide Anion Gap BUN Creatinine Creat Clearance w eGFR Random Glucose Calcium Total Bilirubin AST ALT Alkaline Phosphatase Total Protein Albumin Urine Color Urine Appearance Urine pH Ur Specific [place] Urine Protein Urine Glucose (UA) Urine Ketones Urine Blood Urine Nitrite Urine Bilirubin Urine Urobilinogen Ur Leukocyte Esterase RPR Titer Nonreactive MULTIPLE PAPULAR BLISTERS ON UPPER LIP. NO DRAINAGE. Assessment: 08/18/18 11:52 WITHDRAWAL SX COLD SORE BLISTERS Plan: CONTINUE DETOX
[2018-08-18] MEDS ORDERED: ALBUTEROL SO4 2.5/IPRATROPIUM 0.5 INH SOL 3 ML VIAL.NEB. NEB SCH (12:16)
[2018-08-18] MEDS ORDERED: ALBUTEROL SO4 2.5/IPRATROPIUM 0.5 INH SOL 3 ML VIAL.NEB. NEB PRN (12:23)
[2018-08-18] MEDS: BENZOCAINE 20 % GEL TUBE MM SCH ×2 (14:02→23:03)
[2018-08-18] MEDS: THIAMINE HCL 100 MG TABLET (FP) PO SCH (22:14)
[2018-08-18] MEDS: BUDESONIDE/FORMETEROL FUMARATE 80/4.5 mcg INHALER IH SCH (22:16)
[2018-08-18] MEDS: QUEtiapine FUMARATE 200 MG TABLET PO SCH (22:17)
[2018-08-18] MEDS: BACITRACIN 0.9 GM PACKET TP SCH (22:17)
[2018-08-18] MEDS: MONTELUKAST NA 10 MG TABLET PO SCH (22:17)
[2018-08-18] MEDS: MELATONIN 5 MG TABLETS PO PRN (22:17)
[2018-08-19] MEDS: BENZOCAINE 20 % GEL TUBE MM SCH ×2 (07:09→13:40)
[2018-08-19] MEDS: GABAPENTIN 300 MG CAPSULE (FP) PO SCH ×2 (07:09→13:41)
[2018-08-19] MEDS ORDERED: METHADONE HCL 10 MG TABLET (FOR DETOX USE ONLY) PO ONE (10:00)
[2018-08-19] MEDS: BUDESONIDE/FORMETEROL FUMARATE 80/4.5 mcg INHALER IH SCH (10:41)
[2018-08-19] MEDS: BACITRACIN 0.9 GM PACKET TP SCH (10:41)
[2018-08-19] MEDS: PRENATAL VITAMINS W/ FOLIC ACID TABLET (FP) PO SCH (10:41)
[2018-08-19] MEDS: NICOTINE 14 MG/24 HOURS TOPICAL PATCH TD SCH (10:41)
[2018-08-19] MEDS: NICOTINE POLACRILEX 2 MG GUM BUC PRN (10:43)
[2018-08-19 13:43] VITALS: PULSE 97
[2018-08-19] MEDS ORDERED: hydrOXYzine PAMOATE 25 MG CAPSULE (FP) PO PRN (16:24)
--- NOTE | 2018-08-19 16:27 | PN ---
[facility] Progress Note (SOAP) Subjective: Sweating, chills, anxiety Objective: 08/19/18 16:26 Last Vital Signs Temp Pulse Resp BP Pulse Ox 97.5 F L 97 H 18 144/95 08/19/18 13:42 08/19/18 13:42 08/19/18 13:42 08/19/18 13:42 Laboratory Tests 08/15/18 08/16/18 08/16/18 23:10 07:00 07:00 WBC 6.8 RBC 5.38 Hgb 13.9 Hct 42.2 MCV 78.6 L MCH 25.9 MCHC 33.0 RDW 13.4 Plt Count 265 D MPV 7.1 L Sodium 136 Potassium 4.1 Chloride 104 Carbon Dioxide 25 Anion Gap 7 L BUN 9 Creatinine 0.7 Creat Clearance w eGFR > 60 Random Glucose 106 Calcium 9.3 Total Bilirubin 0.8 AST 17 ALT 33 Alkaline Phosphatase 79 Total Protein 7.8 Albumin 3.9 Urine Color Yellow Urine Appearance Cloudy Urine pH 9.0 H D Ur Specific [place] 1.014 Urine Protein Negative Urine Glucose (UA) Negative Urine Ketones Negative Urine Blood Negative Urine Nitrite Negative Urine Bilirubin Negative Urine Urobilinogen Negative Ur Leukocyte Esterase Negative RPR Titer 08/16/18 07:00 WBC RBC Hgb Hct MCV MCH MCHC RDW Plt Count MPV Sodium Potassium Chloride Carbon Dioxide Anion Gap BUN Creatinine Creat Clearance w eGFR Random Glucose Calcium Total Bilirubin AST ALT Alkaline Phosphatase Total Protein Albumin Urine Color Urine Appearance Urine pH Ur Specific [place] Urine Protein Urine Glucose (UA) Urine Ketones Urine Blood Urine Nitrite Urine Bilirubin Urine Urobilinogen Ur Leukocyte Esterase RPR Titer Nonreactive Labs reviewed Assessment: 08/19/18 16:26 Withdrawal symptoms Plan: Continue detox Vistaril 25mg PO q6hr prn for anxiety
[2018-08-19 17:41] VITALS: BP 128/81; TEMP 97.1
--- NOTE | 2018-08-19 19:50 | PN ---
[facility] Progress Note (SOAP) Subjective: denies any complaints Objective: 08/19/18 19:47 Alert, oriented x 3 Gait steady Not in distress no s/s of withdrawal sx Vital Signs Temperature 97.1 F L 08/19/18 17:40 Pulse Rate 97 H 08/19/18 17:40 Respiratory Rate 19 08/19/18 17:40 Blood Pressure 128/81 08/19/18 17:40 O2 Sat by Pulse Oximetry (%) Assessment: 08/19/18 19:48 for discharge tomorrow requesting detox today s/p has a ride today but not tomorrow. Plan: Will be discharged
--- NOTE | 2018-08-19 20:01 | DS ---
[facility] Detox Discharge Summary Admission Date: 08/15/18 Discharge Date: 08/19/18 - History Additional Comments: Pt requesting discharge tonight because he got a ride to pick him to his rehab place. Doing aftercare rehab at [facility] in [place] albuterol rx stating he still has some. In no acute distress, detox safely completed Pertinent Past History: asthma psych hx - Physical Exam Results Vital Signs: Vital Signs Temperature 97.1 F L 08/19/18 17:40 Pulse Rate 97 H 08/19/18 17:40 Respiratory Rate 19 08/19/18 17:40 Blood Pressure 128/81 08/19/18 17:40 O2 Sat by Pulse Oximetry (%) Pertinent Admission Physical Exam Findings: withdrawal sx - Treatment Hospital Course: Detox Protocol Followed, Detoxed Safely, Responded well, Discharged Condition Good, Rehab Referral Accepted Patient has Accepted a Rehab Referral to: [facility] - Medication Discharge Medications: Ambulatory Orders Albuterol Sulfate Inhaler - [Ventolin HFA Inhaler -] 2 puff IH Q4H PRN #1 inhaler 01/23/17 Bupropion HCl [Wellbutrin -] 300 tab PO DAILY 08/15/18 Gabapentin 300 mg PO TID 08/15/18 Quetiapine Fumarate [Seroquel -] 200 mg PO HS 08/15/18 Bupropion HCl [Wellbutrin Xl] 300 mg PO DAILY 08/16/18 - Diagnosis (1) Opioid dependence with withdrawal Current Visit: Yes Status: Acute (2) Substance induced mood disorder Current Visit: Yes Status: Acute (3) Substance-induced sleep disorder Current Visit: Yes Status: Acute (4) Asthma Current Visit: Yes Status: Chronic Qualifiers: Asthma severity: unspecified severity Asthma persistence: unspecified Asthma complication type: unspecified Qualified Code(s): J45.909 - Unspecified asthma, uncomplicated (5) Nicotine dependence Current Visit: Yes Status: Chronic Qualifiers: Nicotine product type: cigarettes Substance use status: in withdrawal Qualified Code(s): F17.213 - Nicotine dependence, cigarettes, with withdrawal - AMA Did Patient Leave Against Medical Advice: No
[2018-08-20] MEDS ORDERED: METHADONE HCL 5 MG TABLET (FOR DETOX USE ONLY) PO ONE (06:00)
== END 2018-08-19 20:25 | disposition home or self-care (01) | DRG 897 ==
LOC: YASAS 19:10 → Y3N 20:16
PROC: HZ2ZZZZ Detoxification Services for Substance Abuse Treatment (ICD-10-PCS; principal; 2018-08-15)
DX: F11.23 Opioid dependence with withdrawal (principal); F19.282 Other psychoactive substance dependence with psychoactive substance-induced sleep disorder; F17.213 Nicotine dependence, cigarettes, with withdrawal; F19.24 Other psychoactive substance dependence with psychoactive substance-induced mood disorder; F39 Unspecified mood [affective] disorder; F32.9 Major depressive disorder, single episode, unspecified; G47.00 Insomnia, unspecified; J45.909 Unspecified asthma, uncomplicated; B00.1 Herpesviral vesicular dermatitis; E66.9 Obesity, unspecified; Z68.30 Body mass index [BMI] 30.0-30.9, adult
CPT/HCPCS: 36415; 80053; 81003; 85027; 86593; 93005; 93010; J0735